=== PATIENT | male | born 1960 | race Asian ===

== ENCOUNTER 2017-06-28 20:04 | Emergency (ER) | payer SELFPAY ==
[~2017-06-28] VITALS: Ht 165.1 cm; Wt 81.6 kg
[2017-06-28 20:05] VITALS: BP_SYST 169
[2017-06-28] MEDS ORDERED: ALPRAZolam 0.25 MG TABLET PO ONE (20:45)
[2017-06-28] MEDS ORDERED: OXYMETAZOLINE HCL 0.05% NASAL SPRAY NS ONE (21:15)
[2017-06-28] MEDS ORDERED: BACITRACIN 1 GM OINT TP ONE (22:00)
[2017-06-28 22:32] VITALS: BP_SYST 171
== END 2017-06-28 22:32 | disposition home or self-care (01) ==
LOC: SED 20:04
DX: R04.0 Epistaxis (principal); K21.9 Gastro-esophageal reflux disease without esophagitis; I10 Essential (primary) hypertension
CPT/HCPCS: 99284